=== PATIENT | male | born 1950 | race Asian ===

== ENCOUNTER 2024-10-26 19:04 | Inpatient (IN) | payer OTHER ==
[~2024-10-26] VITALS: Ht 167.6 cm; Wt 64.0 kg
--- NOTE | 2024-10-26 19:17 | ED.PDOC ---
History of Present Illness HPI Comments 74-year-old male who denies any significant past medical history brought in by family for evaluation of high blood pressure after a shocking event, that occurred around 1300 today. Patient notes his blood pressure was in the 200s systolic. He denies any associated headache, vision changes, chest pain, shor tness of breath or other symptoms. On arrival to the ED, the patient's blood pressure was in the 160s systolic, and he was otherwise asymptomatic. Chief Complaint: High Blood Pressure Time Seen by MD: 19:09 Reviewed Notes: Medications, Allergies Allergies: Coded Allergies: NO KNOWN ALLERGIES (Unverified , 10/26/24) Information Source: Patient Mode of Arrival: Ambulatory Severity: Moderate Timing: Hours Duration: Since onset Prehospital treatment: None Past Medical History PAST MEDICAL HISTORY: Denies Surgical History: Denies all surgeries Family History Family History: Reviewed,noncontributory to illness Social History Smoker: Non-Smoker Alcohol: Denies ETOH Use Drugs: Denies Drug Use Lives In: Home Constitutional: denies: chills, diaphoresis, fatigue, fever, malaise, sweats, weakness, others EENTM: denies: blurred vision, double vision, ear bleeding, ear discharge, ear drainage, ear pain, ear ringing, eye pain, eye redness, hearing loss, mouth pain, mouth swelling, nasal discharge, nose bleeding, nose congestion, nose pain, photophobia, tearing, throat pain, throat swelling, voice changes, others Respiratory: denies: cough, hemoptysis, orthopnea, SOB at rest, shortness of breath, SOB with excertion, stridor, wheezing, others Cardiovascular: reports: others (HIGH BLOOD PRESSURE); denies: chest pain, dizzy spells, diaphoresis, Dyspnea on exertion, edema, irregular heart beat, left arm pain, lightheadedness, palpitations, PND, syncope Gastrointestinal: denies: abdomen distended, abdominal pain, blood streaked bowels, constipated, diarrhea, dysphagia, difficulty swallowing, hematemesis, melena, nausea, poor appetite, poor fluid intake, rectal bleeding, rectal pain, vomiting, others Genitourinary: denies: burning, dysuria, flank pain, frequency, hematuria, incontinence, penile discharge, penile sore, pain, testicle pain, testicle sw elling, urgency, others Neurological: denies: dizziness, fainting, headache, left sided numbness, left sided weakness, numbness, paresthesia, pre-existing deficit, right sided numbness, right sided weakness, seizure, speech problems, tingling, tremors, weakness, others Musculoskeletal: denies: back pain, gout, joint pain, joint swelling, muscle pain, muscle stiffness, neck pain, others Integumetry: denies: bruises, change in color, change in hair/nails, dryness, laceration, lesions, lumps, rash, wounds, others Allergic/Immunocompromised: denies: Difficulty Healing, Frequent Infections, Hives, Itching, others Hematologic/Lymphatic: denies: anemia, blood clots, easy bleeding, easy bruising, swollen glands, others Endocrine: denies: excessive hunger, excessive sweating, excessive thirst, excessive urination, flushing, intolerance to cold, intolerance to heat, unexplained weight gain, unexplained weight loss, others Psychiatric: denies: anxiety, bipolar disorder, depression, hopeless, panic disorder, schizophrenia, sleepless, suicidal, others All Other Systems: Reviewed and Negative Physical Exam General Appearance: No Apparent Distress HEENT: Other (Pupils and face symmetric. Moist mucous membranes.) Neck: Full Range of Motion, Normal Inspection Respiratory: Lungs Clear, No Accessory Muscle Use, No Respiratory Distress, Normal Breath Sounds Cardiovascular: No Edema, No JVD, Regular Rate/Rhythm Breast Exam: Deferred Gastrointestinal: Non Tender, Soft Genitalia: Deferred Pelvic: Deferred Rectal: Deferred Extremities: Normal inspection, Normal range of motion, Non-tender, No pedal edema Musculoskeletal : Apperance: Normal Neurologic: Alert (Oriented x4), Normal Affect, Normal Mood, Other (Ambulatory) Cerebellar Function: NOT DONE Reflexes: NOT DONE Skin: Dry, Normal Color, Warm Lymphatic: NOT DONE Was a procedure done? Was a procedure done?: No EKG EKG : Comments Sinus rhythm, rate 57, normal intervals, normal axis, possible old anteroseptal infarct, inferior and lateral T-wave inversion Differential Dx Considerations may include: Anxiety, hypertensive urgency/emergency, mi, CHF, renal failure, among others X-Ray, Labs, Meds, VS Vital Signs Date Time Temp Pulse Resp B/P (MAP) Pulse Ox O2 Delivery O2 Flow Rate FiO2 10/26/24 22:06 57 10/26/24 21:37 98.4 58 16 149/80 (103) 95 98.4 10/26/24 19:06 98.8 65 15 160/84 96 98.8 Lab Test 10/26/24 22:14 10/26/24 20:33 10/26/24 19:28 Range/Units Troponin I High Sensitivity Pending 71 *H 73 *H </=54 ng/L White Blood Count 5.6 4.4-10.8 10^3/uL Red Blood Count 4.61 4.5-5.90 10^6/uL Hemoglobin 15.8 13.5-17.5 g/dL Hematocrit 44.4 41.0-53.0 % Mean Corpuscular Volume 96.2 80.0-100.0 fL Mean Corpuscular Hemoglobin 34.2 H 28.0-32.0 pg Mean Corpuscular Hemoglobin Concent 35.6 32.0-36.0 g/dL Red Cell Distribution Width 12.8 11.8-14.3 % Platelet Count 217 140-450 10^3/uL Mean Platelet Volume 8.1 6.9-10.8 fL Neutrophils (%) (Auto) 47.5 37.0-80.0 % Lymphocytes (%) (Auto) 42.6 10.0-50.0 % Monocytes (%) (Auto) 8.0 0.0-12.0 % Eosinophils (%) (Auto) 1.7 0.0-7.0 % Basophils (%) (Auto) 0.2 0.0-2.0 % Neutrophils # (Auto) 2.7 1.6-8.6 10 ^3/uL Lymphocytes # (Auto) 2.4 0.4-5.4 10 ^3/uL Monocytes # (Auto) 0.4 0-1.3 10 ^3/uL Eosinophils # (Auto) 0.1 0-0.8 10 ^3/uL Basophils # (Auto) 0 0-0.2 10 ^3/uL Nucleated Red Blood Cells 0.0 % Sodium Level 141 136-145 mmol/L Potassium Level 3.8 3.5-5.1 mmol/L Chloride Level 107 98-107 mmol/L Carbon Dioxide Level 27 20-31 mmol/L Anion Gap 7 5-15 Blood Urea Nitrogen 12 9-23 mg/dL Creatinine 0.79 0.700-1.30 mg/dL Glomerular Filtration Rate Calc 92 >90 mL/min BUN/Creatinine Ratio 15.2 10.0-20.0 Serum Glucose 117 H 74-106 mg/dL Calcium Level 9.3 8.7-10.4 mg/dL B-Type Natriuretic Peptide 105.71 0-100 pg/mL PROCEDURE(s): CXRP - CHEST PORTABLE REASON: hi bp ORDER NUMBER(s): [id number], ACCESSION NUMBER(s): [id number] EXAM: XY CHEST PORTABLE CLINICAL HISTORY: hi bp TECHNIQUE: Single frontal view of the chest WID: COMPARISON: None FINDINGS: Lines and tubes: None Chest: The heart size and pulmonary vasculature is within normal limits. Calcified plaque projects over the aortic arch. No pleural effusion, pneumothorax, or consolidation. The osseous structures are grossly intact. IMPRESSION: No acute cardiopulmonary abnormality. X-Ray, Labs, Meds, VS Comment 74-year-old male who denies any significant past medical history brought in by family for evaluation of high blood pressure after a shocking event, that occurred around 1300 today. Vitals remarkable for BP 160/84, heart rate 58 Exam unremarkable Rhythm strip independently interpreted by me: Sinus rhythm, rate 65, no ectopy. Chest x-ray remarkable CBC and basic metabolic panel unremarkable, BNP 105.71, serial troponins 73 and 71 Patient treated with the following in the ED: Aspirin 325 mg p.o., nitro bid 1/2 inch to chest wall On re-evaluation, blood pressure is 149/80 and other vitals were stable. Patient remains asymptomatic. Plan is to admit the patient for ongoing serial troponins and Cardiology evaluation. Time of 1ST Reevaluation: 19:39 Reevaluation 1ST: Unchanged Patient Education/Counseling: Diagnosis, Treatment, Need For Follow Up Family Education/Counseling: Diagnosis, Treatment, Need For Follow Up SEPSIS Sepsis Screen Date sepsis recognized/suspect: Oct 26, 2024 Time Sepsis recognized/suspect: 1906 Recent Procedure: No On Antibiotic Therapy: No Respiratory Rate >20: No Heart Rate >90: No Temp<36 C (96.8 F) or >38.3 C: No SBP <90 or MAP <65 mmHG: No New Acute Mental Status Change: No Is the patient on CPAP, BIPAP,: No Physician Orders Chest Portable (10/26/24 19:07) Urinalysis (10/26/24 19:07) Electrocardigram (10/26/24 19:07) Troponin-I Hs (10/26/24 22:07) Vital Signs Date Time Temp Pulse Resp B/P (MAP) Pulse Ox O2 Delivery O2 Flow Rate FiO2 10/26/24 22:06 57 10/26/24 21:37 98.4 58 16 149/80 (103) 95 98.4 10/26/24 19:06 98.8 65 15 160/84 96 98.8 Laboratory Tests Test 10/26/24 19:28 White Blood Count 5.6 10^3/uL (4.4-10.8) Departure 1 Departure Time of Disposition: 21:57 Impression: Primary Impression: Hypertensive emergency Additional Impression: Elevated troponin Disposition: ADMITTED INPATIENT Admit to: [facility] Condition: Guarded Critical Care Note Critical Care Time?: No Stability Stability form required: No Heart Score Heart Score: Heart Score Response (Comments) Value History N/A 0 EKG N/A 0 Age N/A 0 Risk Factors N/A 0 Troponin N/A 0 Total 0 I personally scribed for RADHA CESAR MD ([email or web address]) on 10/26/24 at 19:17. Electronically submitted by Leonel Molina ([email or web address]). RADHA CESAR MD Oct 26, 2024 19:17
[2024-10-26 19:41] LABS: Hematocrit 44.4 % (41.0-53.0); Hemoglobin 15.8 g/dL (13.5-17.5); Mean Corpuscular Hemoglobin 34.2 pg (28.0-32.0); Mean Corpuscular Volume 96.2 fL (80.0-100.0); Nucleated Red Blood Cells % 0.0 %
[2024-10-26 19:47] LABS: Chloride 107 mmol/L (98-107); Potassium 3.8 mmol/L (3.5-5.1); Sodium 141 mmol/L (136-145)
[2024-10-26 19:48] LABS: Anion Gap 7 (5-15); Carbon Dioxide 27 mmol/L (20-31)
[2024-10-26 19:49] LABS: Calcium 9.3 mg/dL (8.7-10.4)
[2024-10-26 19:53] LABS: BUN/Creatinine Ratio 15.2 (10.0-20.0); Blood Urea Nitrogen 12 mg/dL (9-23)
[2024-10-26 20:01] LABS: Glucose 117 mg/dL (74-106)
--- NOTE | 2024-10-26 21:20 | DVH ---
EXAM: XY CHEST PORTABLE CLINICAL HISTORY: hi bp TECHNIQUE: Single frontal view of the chest WID: COMPARISON: None FINDINGS: Lines and tubes: None Chest: The heart size and pulmonary vasculature is within normal limits. Calcified plaque projects over the aortic arch. No pleural effusion, pneumothorax, or consolidation. The osseous structures are grossly intact. IMPRESSION: No acute cardiopulmonary abnormality.
[2024-10-26] MEDS: NITROGLYCERIN 2% OINT 1GM PKG TD ONE (22:00)
[2024-10-26 23:15] VITALS: BP 124/65; PULSE 50; RESP 16; TEMP 97.8; O2SAT 98
--- NOTE | 2024-10-26 23:25 | DVHHP2 ---
History of Present Illness Reason for Visit: Hypertensive emergency History of Present Illness The patient is a 74-year-old male with past medical history of hypertension and hyperlipidemia who presented to [facility] ED for evaluation of elevated blood pressure. Patient reports blood pressure was in the 200 systolic associated with headache, change in vision, chest pain, shortness of breaths, getting worse that prompted this visit. Patient was seen and evaluated in the ED, laboratory data shows WBC 5.6, platelets 217, sodium 141, potassium 3.8, BUN 12, creatinine 0.79, glucose 117, calcium 9.3, BNP 105.71, troponin 72, blood pressure trending down to 124/65, heart rate 68, temperature 97.8 F, O2 saturation 98% on room air. Chest x-ray show no acute cardiopulmonary abnormality. On my assessment, patient denied chest pain, no headache, no dizziness, no diaphoresis, no shortness of breath, no nausea, no vomiting, no fever, no chills. Patient was admitted for further evaluation and medical management, but left AMA. Past Medical History HTN, HLD Past Surgical History Denies all surgeries Family History Reviewed, noncontributory to the management of this case. Past Social History The patient lives at home, denies smoking, alcohol or illicit drugs abuse. Review of Systems Constitutional: No: Fever, Chills, Sweats, Weakness, Malaise, Other Eyes: No: Pain, Vision change, Conjunctivae inflammation, Eyelid inflammation, Other, Redness ENT: No: Ear pain, Ear discharge, Nose pain, Nose discharge, Nose congestion, Mouth pain, Mouth swelling, Throat pain, Throat swelling, Other Respiratory: No: Cough, Dry, Shortness of breath, SOB with excertion, Wheezing, Hemoptysis, Pleuritic Pain, Sputum, Wheezing, Other Cardiovascular: Other (Hypertension); No: Chest Pain, Palpitations, Orthopnea, Paroxysmal Noc. Dyspnea, Edema, Lt Headedness Gastrointestinal: No: Nausea, Vomiting, Abdominal Pain, Diarrhea, Constipation, Melena, Hematochezia, Other Genitourinary: No Dysuria, No Frequency, No Incontinence, No Hematuria, No Retention, No Other Musculoskeletal: No: other, neck pain, shoulder pain, arm pain, back pain, hand pain, leg pain, foot pain Neurological: No: Weakness, Numbness, Incoordination, Change in speech, Confusion, Seizures, Other Allergies: Coded Allergies: NO KNOWN ALLERGIES (Unverified , 10/26/24) Exam Vital Signs Vital Signs Date Time Temp Pulse Resp B/P (MAP) Pulse Ox O2 Delivery O2 Flow Rate FiO2 10/26/24 23:15 97.8 50 16 124/65 (84) 98 97.8 10/26/24 23:15 Room Air General Appearance: Alert, Oriented X3, Cooperative, No acute distress HEENT: Atraumatic, PERRLA, EOMI, Mucous membr. moist/pink Respiratory: Clear to auscultation, Normal air movement Cardiovascular: Regular rate, Normal S1, Normal S2, No murmurs Abdominal: Normal bowel sounds, Soft, No tenderness, No hepatospenomegaly, No masses Extremities: No clubbing, No cyanosis, No edema, Normal pulses, No tenderness/swelling Skin: No rashes, No breakdown, No significant lesion Neuro: Normal gait, Normal speech, Strength at 5/5 X4 ext, Normal tone, Sensation intact, Cranial nerves 3-12 NL, Reflexes 2+ Psych/Mental Status: Mental status NL, Mood NL Labs/Xrays Labs Test 10/26/24 22:14 10/26/24 19:28 Range/Units Troponin I High Sensitivity 72 *H </=54 ng/L White Blood Count 5.6 4.4-10.8 10^3/uL Red Blood Count 4.61 4.5-5.90 10^6/uL Hemoglobin 15.8 13.5-17.5 g/dL Hematocrit 44.4 41.0-53.0 % Mean Corpuscular Volume 96.2 80.0-100.0 fL Mean Corpuscular Hemoglobin 34.2 H 28.0-32.0 pg Mean Corpuscular Hemoglobin Concent 35.6 32.0-36.0 g/dL Red Cell Distribution Width 12.8 11.8-14.3 % Platelet Count 217 140-450 10^3/uL Mean Platelet Volume 8.1 6.9-10.8 fL Neutrophils (%) (Auto) 47.5 37.0-80.0 % Lymphocytes (%) (Auto) 42.6 10.0-50.0 % Monocytes (%) (Auto) 8.0 0.0-12.0 % Eosinophils (%) (Auto) 1.7 0.0-7.0 % Basophils (%) (Auto) 0.2 0.0-2.0 % Neutrophils # (Auto) 2.7 1.6-8.6 10 ^3/uL Lymphocytes # (Auto) 2.4 0.4-5.4 10 ^3/uL Monocytes # (Auto) 0.4 0-1.3 10 ^3/uL Eosinophils # (Auto) 0.1 0-0.8 10 ^3/uL Basophils # (Auto) 0 0-0.2 10 ^3/uL Nucleated Red Blood Cells 0.0 % Sodium Level 141 136-145 mmol/L Potassium Level 3.8 3.5-5.1 mmol/L Chloride Level 107 98-107 mmol/L Carbon Dioxide Level 27 20-31 mmol/L Anion Gap 7 5-15 Blood Urea Nitrogen 12 9-23 mg/dL Creatinine 0.79 0.700-1.30 mg/dL Glomerular Filtration Rate Calc 92 >90 mL/min BUN/Creatinine Ratio 15.2 10.0-20.0 Serum Glucose 117 H 74-106 mg/dL Calcium Level 9.3 8.7-10.4 mg/dL B-Type Natriuretic Peptide 105.71 0-100 pg/mL PATIENT: JAVIER BENEDICT ACCT: [id number] UNIT: [id number] : 1950 LOC: ER ROOM / BED: / AGE / SEX: 74 / M ADM STATUS: REG ER SERVICE 06 ORDERING PHYSICIAN: RADHA CESAR MD PROCEDURE(s): CXRP - CHEST PORTABLE REASON: hi bp ORDER NUMBER(s): [id number], ACCESSION NUMBER(s): [id number] EXAM: XY CHEST PORTABLE CLINICAL HISTORY: hi bp TECHNIQUE: Single frontal view of the chest WID: COMPARISON: None FINDINGS: Lines and tubes: None Chest: The heart size and pulmonary vasculature is within normal limits. Calcified plaque projects over the aortic arch. No pleural effusion, pneumothorax, or consolidation. The osseous structures are grossly intact. IMPRESSION: No acute cardiopulmonary abnormality. SEPSIS Sepsis Screen Date sepsis recognized/suspect: Oct 26, 2024 Time Sepsis recognized/suspect: 1906 Recent Procedure: No On Antibiotic Therapy: No Respiratory Rate >20: No Heart Rate >90: No Temp<36 C (96.8 F) or >38.3 C: No SBP <90 or MAP <65 mmHG: No New Acute Mental Status Change: No Is the patient on CPAP, BIPAP,: No Physician Orders Chest Portable (10/26/24 19:07) Urinalysis (10/26/24 19:07) Electrocardigram (10/26/24 19:07) Aspirin Tablet (10/27/24 10:00) Atorvastatin (Lipitor) (10/27/24 22:00) Famotidine Injection (Pepcid Injection) (10/27/24 10:00) Hydralazine Injection (Apresoline Inject (10/26/24 23:30) Atenolol Tablet (Tenormin Tablet) (10/27/24 10:00) Vital Signs Date Time Temp Pulse Resp B/P (MAP) Pulse Ox O2 Delivery O2 Flow Rate FiO2 10/26/24 23:15 97.8 50 16 124/65 (84) 98 97.8 10/26/24 23:15 50 16 98 Room Air 10/26/24 22:06 57 10/26/24 22:00 124/65 10/26/24 21:37 98.4 58 16 149/80 (103) 95 98.4 10/26/24 19:06 98.8 65 15 160/84 96 98.8 Laboratory Tests Test 10/26/24 19:28 White Blood Count 5.6 10^3/uL (4.4-10.8) Medications Medications Dose Ordered Sig/José Miguel Route Start Time Stop Time Status Last Admin Dose Admin Aspirin 325 mg ONCE ONCE PO 10/26/24 22:00 10/26/24 22:01 DC 10/26/24 22:00 325 MG Assessment/Plan Assessment/Plan Hypertensive emergency Elevated troponin Plan 1. Admit to telemetry unit 2. Breathing treatment 3. Pain control management 4. Management of fluids and electrolytes 5. Consultation for Cardiology 6. Diagnostic tests chest x-ray 7. DVT prophylaxis-on aspirin 8. Repeat labs CBC, CMP in a.m. 9. Continue with current medical management 10. Treatment plan discussed with patient and RN. Patient left against medical advice. Plan discussed with: Patient, Other (EN) My Orders Orders - CASEY WELCH DNP Procedure Category Date Status Time Aspirin Tablet PHA 10/27/24 Verified 10:00 Atorvastatin (Lipitor) PHA 10/27/24 Verified 22:00 Famotidine Injection PHA 10/27/24 Verified (Pepcid Injection) 10:00 Hydralazine Injection PHA 10/26/24 Verified (Apresoline Inject 23:30 Atenolol Tablet PHA 10/27/24 Verified (Tenormin Tablet) 10:00 Problem List: (1) Hypertensive emergency (2) Elevated troponin Date of Service: Oct 26, 2024 Billing Provider: CASEY WELCH DNP Common Visit Codes: [id number] INP/OBS CARE (HIGH) CASEY WELCH DNP Oct 26, 2024 23:25
[2024-10-26] MEDS ORDERED: ONDANSETRON HCL 4 MG/2 ML VIAL IV PRN (23:30)
[2024-10-26] MEDS ORDERED: hydrALAZINE HCL 20 MG/ML VL IV PRN (23:30)
[2024-10-26] MEDS ORDERED: ACETAMINOPHEN 325 MG TAB PO PRN (23:30)
[2024-10-26] MEDS ORDERED: HYDROcodone-ACET 5/325MG TAB PO PRN (23:30)
[2024-10-26] MEDS ORDERED: MORPHINE SULFATE INJ 2 MG/ml SYRG IV PRN (23:30)
[2024-10-26] MEDS ORDERED: NITROGLYCERIN 0.4 MG SL TAB SL PRN (23:30)
[2024-10-26] MEDS ORDERED: DOCUSATE SOD 100 MG CAP PO PRN (23:30)
[2024-10-27] MEDS ORDERED: SODIUM CHLOR 0.9% PF (SALINE LOCK) 10ML VIAL/SYR IV SCH (06:00)
--- NOTE | 2024-10-27 06:11 | ECG ---
[facility] Test Date: 2024-10-26 Test Time: 22:06:02 Pat Name: JAVIER BENEDICT Department: Room: [address] [place] [address] Gender: M Inoculator: CIARA : 1950 Requested By: RADHA VALDEZ Order Number: [id number] Reading MD: Lucho Viera Measurements Intervals Velva Rate: 57 P: 53 PA: 166 QRS: 49 QRSD: 114 T: 257 QT: 456 QTc: 444 Interpretive Statements Sinus rhythm Probable left atrial enlargement Abnormal R-wave progression, early transition Anteroseptal infarct, old Abnormal T, consider ischemia, diffuse leads Electronically Signed On 10-30-2024 22:47:23 PDT by Lucho Viera Please click the below link to view image of tracing.
[2024-10-27] MEDS ORDERED: ATENOLOL 25 MG TAB PO SCH (10:00)
[2024-10-27] MEDS ORDERED: FAMOTIDINE (10MG/ML) 2ML VL IV SCH (10:00)
[2024-10-27] MEDS ORDERED: ATORVASTATIN 20 MG TAB PO SCH (22:00)
== END 2024-10-27 00:15 | disposition left against medical advice (07) | DRG 305 ==
LOC: ER 19:04 → OVERFLOW 23:21
PROVIDERS: ADMIT Nurse Practitioner Family; ATTEND Nurse Practitioner Family
DX: I16.1 Hypertensive emergency (principal); E78.5 Hyperlipidemia, unspecified; I10 Essential (primary) hypertension; R79.89 Other specified abnormal findings of blood chemistry; Z53.29 Procedure and treatment not carried out because of patient's decision for other reasons
CPT/HCPCS: 36415; 71045; 80048; 83880; 84484; 85025; 93005; G0378